=== PATIENT | female | born 1965 | race Caucasian/White ===

== ENCOUNTER 2020-04-20 13:56 | Emergency (ER) | payer BC, SELFPAY ==
--- NOTE | 2020-04-20 15:48 | ED_ITS ---
HPI - General Adult General Chief complaint: General Medical Stated complaint: Chest Wall Pain Time Seen by Provider: 04/20/20 15:38 Source: patient Mode of arrival: ambulatory Limitations: no limitations History of Present Illness HPI narrative: 54-year-old female who reports she has history of hiatal hernia status post mesh as well as tubal ligation and history of hypertension not currently taking any medications presents today with complaint of 1 week of on and off pain on the left-sided chest. She does report she works for [employer] which is somewhat labor-intensive with lot of repetitive movement which makes the pain. she does report there is some nausea after eating which is also been present for the duration of the time. She denies any vomiting or diarrhea. No recent travel or sick contacts. No lower extremity swelling. Does report history of heart disease from father's side otherwise no personal history. Onset (ago): day(s) (5+ days ) Location: chest Radiation: non-radiation Severity: mild and moderate Severity scale (1-10): 3 Quality: aching Pain Consistency: intermittent Relieving factors: immobilization Exacerbating factors: movement Associated symptoms: denies other symptoms Treatments prior to arrival: none Related Data Allergies Allergy/AdvReac Type Severity Reaction Status Date / Time morphine Allergy Difficulty Verified 04/20/20 15:43 Breathing codeine AdvReac Agitated Verified 04/20/20 15:43 Review of Systems Review of Systems: Constitutional: No Weight loss, No Fever, No Chills, No Night Sweats, No Fatigue, No Malaise ENT/Mouth: No Hearing loss, No Ear Pain, No Nasal Congestion, No Sinus Pain, No Hoarseness, No sore throat, No Rhinorrhea, No Swallowing Difficulty Eyes: No Eye Pain, No Swelling, No Redness, No Foreign Body, No Discharge, No Vision Changes Cardiovascular: + Chest Pain, No SOB, No Dyspnea on Exertion, No Orthopnea, No Edema, No Palpitations Respiratory: No Cough, No Sputum, No Wheezing, No Smoke Exposure, No Dyspnea Gastrointestinal: + Nausea, No Vomiting, No Diarrhea, No Constipation, No abdominal Pain, No Hematochezia, No Melena Genitourinary: no irregular bleeding, No Dysuria, No Urinary Frequency, No Hematuria, No Urinary Incontinence, No Urgency, No Flank Pain, No Urinary Flow Changes, No Hesitancy Musculoskeletal: No joint pain, No Myalgias, No Joint Swelling Skin: No Skin Lesions, No rash Neuro: No Weakness, No Numbness, No Paresthesias, No Loss of Consciousness, No Dizziness, No Headache Psych: No Social Issues Heme/Lymph: No Bruising, No Bleeding,No Lymphadenopathy Endocrine: No Polyuria, No Polydipsia, No Temperature Intolerance Yes all other systems are reviewed and are negative [facility]LY [facility] Past Medical History Attestation statement: The following information was validated with the patient. Social History Social History Alcohol intake: never Smoking Status: Never smoker Smoked in Last 30 Days: No Use of substances other than those prescribed or required for medical reasons: No Advance Directives: No Advance Directives Information Provided: No Physical Exam Vital Signs: Vital Signs: Vital Signs Temp Pulse Resp BP Pulse Ox 04/20/20 15:51 98.9 F 71 18 134/77 97 Reviewed Course Course Course Narrative: Exam are consistent with costochondritis atypical for ACS /GB disease. Labs overall stable. D-dimer negative. Abdominal exam benign. Ultrasound negative. No transaminitis. Given IV fluids/Toradol feels much better. Pain is reproducible on exam to the sternal area. Medical Decision Making Differential Diagnosis Differential Diagnosis: Costochondritis, ACS, PE, gastroesophageal reflux disease, GB disease. Lab Data Lab results reviewed: Yes I reviewed the patient's lab results. Result diagrams: 04/20/20 16:11 04/20/20 16:11 Labs: Lab Results 04/20/20 04/20/20 04/20/20 Range/Units 16:11 16:11 16:11 WBC 9.2 (4.8-10.8) X10*3/uL RBC 4.45 (4.20-5.50) X10*6/uL Hgb 12.0 (12.0-16.0) g/dl Hct 37.0 (37-47) % MCV 83.1 (80-98) fL MCH 27.0 (27.0-33.0) pg MCHC 32.4 (31.0-35.0) g/dl RDW 13.0 (11.0-16.0) % Plt Count 285 (160-400) X10*3/uL MPV 10.0 (9.4-12.3) fL Immature Gran % (Auto) 0.2 (0.0-0.4) % Neut % (Auto) 65.4 (45-73) % Lymph % (Auto) 28.3 (20-40) % [place] % (Auto) 4.6 (2-11) % Eos % (Auto) 1.3 (0-4) % Baso % (Auto) 0.2 (0-2) % Lymph # (Auto) 2.6 (1.2-4.9) X10*3/uL [place] # (Auto) 0.4 (0.1-1.2) X10*3/uL Eos # (Auto) 0.1 (0.0-0.4) X10*3/uL Baso # (Auto) 0.0 (0.0-0.2) X10*3/uL Abs Immat Gran (auto) 0.02 (0.00-0.03) X10*3/uL Absolute Neuts (auto) 6.0 (2.0-8.3) X10*3/uL Absolute Nucleated RBC 0.000 (0.0-0.012) X10*3/uL Nucleated RBC % (auto) 0.0 (0.0-0.2) /100WBC PT (10.8-13.0) SEC INR (0.9-1.1) APTT (24.1-38.0) SEC D-Dimer < 200 NG/ML Sodium 139 (135-145) mmol/L Potassium 4.5 (3.3-5.1) mmol/l Chloride 105 (96-108) mmol/L Carbon Dioxide 25 (22-29) mmol/L Anion Gap 14 (12-20) BUN 13 (9-16) mg/dL Creatinine 0.80 (0.5-1.4) mg/dL Estim Creat Clear Calc TNP Estimated GFR > 60 Random Glucose 93 (60-115) mg/dL Calcium 9.2 (8.4-10.2) mg/dL Total Bilirubin 0.4 (0.0-1.0) mg/dL AST 20 (5-31) U/L ALT 16 (0-31) U/L Alkaline Phosphatase 87 (39-117) U/L Troponin I High Sens (<3.5-17.0) ng/L Total Protein 7.2 (6.5-8.0) g/dL Albumin 4.3 (3.5-5.0) g/dL 04/20/20 04/20/20 Range/Units 16:11 16:11 WBC (4.8-10.8) X10*3/uL RBC (4.20-5.50) X10*6/uL Hgb (12.0-16.0) g/dl Hct (37-47) % MCV (80-98) fL MCH (27.0-33.0) pg MCHC (31.0-35.0) g/dl RDW (11.0-16.0) % Plt Count (160-400) X10*3/uL MPV (9.4-12.3) fL Immature Gran % (Auto) (0.0-0.4) % Neut % (Auto) (45-73) % Lymph % (Auto) (20-40) % [place] % (Auto) (2-11) % Eos % (Auto) (0-4) % Baso % (Auto) (0-2) % Lymph # (Auto) (1.2-4.9) X10*3/uL [place] # (Auto) (0.1-1.2) X10*3/uL Eos # (Auto) (0.0-0.4) X10*3/uL Baso # (Auto) (0.0-0.2) X10*3/uL Abs Immat Gran (auto) (0.00-0.03) X10*3/uL Absolute Neuts (auto) (2.0-8.3) X10*3/uL Absolute Nucleated RBC (0.0-0.012) X10*3/uL Nucleated RBC % (auto) (0.0-0.2) /100WBC PT 11.7 (10.8-13.0) SEC INR 1.0 (0.9-1.1) APTT 31.7 (24.1-38.0) SEC D-Dimer NG/ML Sodium (135-145) mmol/L Potassium (3.3-5.1) mmol/l Chloride (96-108) mmol/L Carbon Dioxide (22-29) mmol/L Anion Gap (12-20) BUN (9-16) mg/dL Creatinine (0.5-1.4) mg/dL Estim Creat Clear Calc Estimated GFR Random Glucose (60-115) mg/dL Calcium (8.4-10.2) mg/dL Total Bilirubin (0.0-1.0) mg/dL AST (5-31) U/L ALT (0-31) U/L Alkaline Phosphatase (39-117) U/L Troponin I High Sens < 3.5 (<3.5-17.0) ng/L Total Protein (6.5-8.0) g/dL Albumin (3.5-5.0) g/dL Imaging Data US - abdomen: Radiologist's impression: Sangeeta Alamo I 54 F 1965 [place] [address] Ultrasound Report Signed Patient: Sangeeta Alamo IMR#: [id number] : 1965Acct:[id number] Age/Sex: 54 / FADM Date: 04/20/20 Loc: HO.ED Attending Dr: Ordering Physician: Surendra Corcoran NP Date of Service: 04/20/20 Procedure(s): US abdomen limited Accession Number(s): [id number] cc: Surendra Corcoran BAND INSTRUMENT REPAIRER~ EXAMINATION: US ABDOMEN LIMITED CLINICAL INFORMATION: Abdominal pain. COMPARISON: None TECHNIQUE: Real-time imaging of the right upper quadrant abdominal viscera. FINDINGS: PANCREAS: Normal. LIVER: Normal. The liver is normal in size. The liver contour is normal. Parenchymal echogenicity is normal. No focal hepatic lesion. There is no intrahepatic biliary duct dilatation seen. GALLBLADDER: Normal. The gallbladder is physiologically distended without evidence of stones, sludge, polyps, wall thickening or pericholecystic fluid. COMMON BILE DUCT: Normal in caliber measuring 0.7 cm in diameter. RIGHT KIDNEY: Normal. No hydronephrosis. No renal calculi or focal parenchymal lesions. The kidney measures 9.6 cm in maximum dimension. FREE FLUID: None. US/US abdomen limited IMPRESSION: Unremarkable limited abdomen ultrasound. Dictated By:XIOMY GARCIA MD Signed By:<Electronically signed by XIOMY GARCIA MD in OV>04/20/20 1655 DD/ 1548 TD/TT: Cementer Hand: SONIA Chest x-ray: Radiologist's impression: [id number] [place] [address] XRay Report Signed Patient: Sangeeta Alamo IMR#: [id number] : 1965Acct:[id number] Age/Sex: 54 / FADM Date: 04/20/20 Loc: .ED Attending Dr: Ordering Physician: Surendra Corcoran NP Date of Service: 04/20/20 Procedure(s): XR chest 1V Accession Number(s): [id number] cc: Surendra Corcoran NP~ EXAMINATION: XR CHEST CLINICAL INFORMATION: None provided COMPARISON: None TECHNIQUE: Frontal view of the chest was obtained. FINDINGS: No significant abnormality is noted involving the heart, lungs, mediastinum, bony thorax or soft tissues. XR/XR chest 1V IMPRESSION: Unremarkable examination. Dictated By:NAZARIO DEL VALLE MD Signed By:<Electronically signed by NAZARIO DEL VALLE MD in OV>04/20/20 1624 DD/ 1548 TD/TT: Cementer Hand: SS Scores Additional Scores PERC Score: Score: positive over the age of 50 Comment: heart score negative Discharge Plan Discharge Clinical Impression: Atypical chest pain, Acute costochondritis Patient Disposition: Home, Self-Care Instructions: Chest Pain (ED), Costochondritis (ED) Additional Instructions: supportive bra [id number] naproxen return instructions provided otherwise follow up her primary doctor as instructed Thank you Referrals: Kathryn Staples MD [Primary Care Provider] - 1 week
--- NOTE | 2020-04-20 15:49 | ECG_ITS ---
Test Reason : CHEST WALL PAIN Blood Pressure : / mmHG Vent. Rate : 078 BPM Atrial Rate : 078 BPM P-R Int : 132 ms QRS Dur : 080 ms QT Int : 344 ms P-R-T Axes : 016 011 013 degrees QTc Int : 392 ms Normal sinus rhythm Normal ECG No previous ECGs available Referred By: Surendra Corcoran Electronically Signed By:YOAN JOHNSON MD
[2020-04-20 15:51] VITALS: BP 134/77; PULSE 71; RESP 18; TEMP 37.2; O2SAT 97
[2020-04-20 16:17] LABS: MANUAL DIFF FLAG NO
[2020-04-20 16:18] LABS: Basophils Percent Auto 0.2 % (0-2); Eosinophils Absolute Auto 0.1 X10*3/uL (0.0-0.4); Eosinophils Percent Auto 1.3 % (0-4); Imm Gran Abs Auto 0.02 X10*3/uL (0.00-0.03); Imm Gran Pct Auto 0.2 % (0.0-0.4); Lymphocytes Absolute Auto 2.6 X10*3/uL (1.2-4.9); Lymphocytes Percent Auto 28.3 % (20-40); Mean Corpuscular HGB Conc 32.4 g/dl (31.0-35.0); Mean Corpuscular Volume 83.1 fL (80-98); Monocytes Absolute Auto 0.4 X10*3/uL (0.1-1.2); Monocytes Percent Auto 4.6 % (2-11); Neutrophils Percent Auto 65.4 % (45-73); Platelet Count 285 X10*3/uL (160-400); Red Blood Count 4.45 X10*6/uL (4.20-5.50); White Blood Count 9.2 X10*3/uL (4.8-10.8)
--- NOTE | 2020-04-20 16:20 | PC.NURSE ---
IV started and labs sent.
[2020-04-20] MEDS: 0.9 % Sodium Chloride 500 ML 1000 ML IV (16:24)
[2020-04-20 16:29] LABS: D Dimer < 200 NG/ML
[2020-04-20 16:31] LABS: Prothrombin Time 11.7 SEC (10.8-13.0)
[2020-04-20 16:33] LABS: Partial Thromboplastin Time 31.7 SEC (24.1-38.0)
[2020-04-20 16:47] LABS: Alanine Aminotransferase 16 U/L (0-31); Albumin Level 4.3 g/dL (3.5-5.0); Alkaline Phosphatase 87 U/L (39-117); Anion Gap 14 (12-20); Aspartate Amino Transferase 20 U/L (5-31); Bilirubin Total 0.4 mg/dL (0.0-1.0); Blood Urea Nitrogen 13 mg/dL (9-16); Calcium 9.2 mg/dL (8.4-10.2); Carbon Dioxide 25 mmol/L (22-29); Chloride 105 mmol/L (96-108); Estimated Glomerular Filt Rate > 60; Glucose Random 93 mg/dL (60-115); Potassium 4.5 mmol/l (3.3-5.1); Sodium 139 mmol/L (135-145); Total Protein 7.2 g/dL (6.5-8.0)
[2020-04-20 16:55] LABS: Troponin-I High Sensitivity < 3.5 ng/L (<3.5-17.0)
[2020-04-20 17:46] VITALS: BP 123/72; PULSE 70; RESP 16; TEMP 37.2; O2SAT 99
[2020-04-20 17:47] LABS: Glucose Urine UA NEG (NEG); Leukocyte Esterase Urine NEG (NEG); Nitrite Urine NEG (NEG); PH 6.5 (5.0-8.0); Specific Gravity - Urine 1.025 (1.005-1.025); Urine Blood NEG (NEG); Urine Ketones NEG (NEG); Urine Protein NEG (NEG-TRACE)
[2020-04-20 17:50] LABS: Appearance Urine CLEAR; Color Urine YELLOW
[2020-04-20 17:57] LABS: RBC Urine 0 /HPF (0); Squamous Epithelial Cell Urine 2+ /LPF; WBC Urine 0 /HPF (0-4)
[2020-04-20] MEDS: Ketorolac Tromethamine 30 MG/ML VIAL IVPUSH (18:03)
== END 2020-04-20 18:39 | disposition home or self-care (01) ==
PROVIDERS: Nurse Practitioner Primary Care; Emergency Provider Emergency Medicine; PCP Internal Medicine
DX: R07.89 Other chest pain (principal); M94.0 Chondrocostal junction syndrome [Tietze]
CPT/HCPCS: 36415; 71045; 76705; 80053; 81001; 84484; 85025; 85379; 85610; 85730; 93005; 99283; 99284; J1885

== ENCOUNTER 2020-07-19 06:47 | Outpatient (REF) | payer BC, SELFPAY | END 2020-07-19 06:48 | disposition home or self-care (01) | LOC: HO.LAB 06:47 | PROVIDERS: PCP Internal Medicine; Visit Provider Internal Medicine | DX: Z20.822 Contact with and (suspected) exposure to COVID-19 (principal) | CPT/HCPCS: 36415; C9803; U0003 ==

== ENCOUNTER 2025-05-03 14:52 | Outpatient (AMB) | payer BC, SELFPAY ==
--- NOTE | 2025-05-03 15:14 | A.OFFPC_ITS ---
Vital Signs 05/03/25 15:17 Height 5 ft 0.5 in Weight 179 lb 2 oz BMI 34.4 BP 130/84 Blood Pressure Location Lt brachial Position Sitting Respiration 16 Pulse 74 Pulse Source Pulse Oximeter Temp 97.1 F Temp Source Temporal Artery Scan Pulse Oximetry (%) 97 Oxygen Delivery Method Room Air Intake Visit Reasons: medication follow up Medical Doctor Md/Medical Director Required: No Accompanied by: Self / Same As Patient Allergies morphine Allergy (Verified 05/03/25 15:14) Difficulty Breathing codeine Adverse Reaction (Verified 05/03/25 15:14) Agitated Medication List - Last Reconciled 05/03/25 by Kathryn Staples MD meclizine 25 mg PO TID metformin ER 500 mg PO DAILY omeprazole 40 mg PO BID Tobacco use date assessed: 05/03/25 Dental Screening Dental Screen Date: 05/03/25 Did you have a dental visit in the last 12 months?: No Did you have a dental problem in the last 6 months where you did not have access to dental care?: No Was dental information given to patient?: No HPI HPI Comments History of Present Illness Details The patient is a 59-year-old female [facility] with numerous concerns including GERD, indigestion and nocturnal bowel movements, urinary incontinence, and vertigo. Helicobacter pylori infection: could not do test of cure because of increased pain when she stops PPI Gastroesophageal reflux disease (GERD): Omeprazole is essential to manage symptoms. Discontinuing causes severe heartburn. Urinary incontinence: Frequent urinary leakage on exertion and urgency. Limited benefit from Kegel exercises. Episodes of nocturnal bowel movements: Reports uncontrolled bowel movements at night on some occasions, states symptoms predated metformin. Vertigo: Dizziness exacerbated by certain work activities necessitating physical exertion and changing levels Anemia/vitamin d deficiency: due for repeat labs Bilateral foot pain with calluses: Experiences foot pain after prolonged standing; uses specialty shoe inserts but notes left foot has worsened. Medications: - Omeprazole for GERD, taken twice daily - Metformin taken daily at 2:30 pm to [facility] side effects for prediabetes - Meclizine for vertigo Social History: - Sometimes has to work demanding 11-latisha r shifts, five days a week - Vertigo affects her ability to perform work tasks involving stair climbing - Experiences anxiety regarding work dut ies involving physical exertion Review of Systems - General: Denies changes in menstrual periods -- Cardiovascular: Reports previous ches t pain linked to anxiety during physical exertion, no current episodes - Gastrointestinal: Reports nocturnal gaye wel movements; per hpi - Genitourinary: Reports urinary inconti nence - Musculoskeletal: Reports foot pain and calluses - Neurologic: Reports dizziness with spe cific activities Physical Exam - Respiratory- Lungs clear with no wheez ing - Cardiovascular- Normal heart sounds wi th a soft murmur noted - Gastrointestinal- Abdomen soft, no ten derness, normal bowel sound - Musculoskeletal- Pulses good; callus n oted on the plantar surface of left foot Assessment and Plan 1. Helicobacter pylori infection - GI referral for EGD 2. Gastroesophageal reflux disease (GERD ) - Continue current medication. 3. Urinary incontinence - Urology referral. 4. Episodes of nocturnal bowel movements - GI referral. 5. Vertigo - Address through workplace adjustments when necessary, meclizine prn 6. Anemia/vitamin d deficiency - Monitor with labs. 7. Calluses - Podiatry referral. - get proper inserts Follow up in 3-4 months Discussion Notes I explained the referral process to specialists for ongoing symptoms including GERD, urinary incontinence, nocturnal bowel movements, and foot discomfort. I advised on the importance of addressing work-induced vertigo, discussing safety measures with her employer to prevent exacerbations. I highlighted the significance of monitoring anemia and the need for follow-up laboratory work. Patient Instructions - Continue taking omeprazole as directed . - Follow up with referred specialists. - Work with her employer to address vert igo safety concerns. - Monitor and report any changes in symp toms. - Complete lab tests as discussed. - Maintain proper footwear and see a pod iatrist for foot pain management. [facility] Medical History (Updated 05/03/25 @ 17:38 by Kathryn Staples MD) Callus of foot Urinary incontinence GERD (gastroesophageal reflux disease) Vitamin D deficiency Impaired fasting glucose Iron deficiency anemia Anemia H. pylori infection Surgical History (Updated 05/01/25 @ 17:50 by Henna Vo) History of colonoscopy (~02/11/22) Social History Housing: House Alcohol intake: never Patient Tobacco Use Status: Never used Tobacco e-Cigarette/Vaping Use: Never Used Current occupational status: employed Current occupation: [employer] AUDIT C Alcohol Use Questionnaire (AUDIT-C) 1. How often do you have a drink containing alcohol?: Never 3. How often do you have six or more drinks on one occasion?: Never Total Score: 0 Physical exam (Primary Care) Vital Signs: Last Vital Signs Temp 97.1 F 05/03/25 15:17 Pulse 74 05/03/25 15:17 Resp 16 05/03/25 15:17 BP 130/84 05/03/25 15:17 Pulse Ox 97 05/03/25 15:17 Oxygen Delivery Method Room Air 05/03/25 15:17 BMI result Body Mass Index 34.4 Tobacco/Smoking Status: Tobacco use Status Tobacco use date assessed 05/03/25 05/03/25 15:21 Patient Tobacco Use Status Never used Tobacco 05/03/25 15:21 e-Cigarette/Vaping Use Never Used 05/03/25 15:21 Coding Level of Care Code Est Pt Level 4 (91280) Complex EM visit Add On G2211 Diagnoses H. pylori infection A04.8 Gastroesophageal reflux disease, unspecified whether esophagitis present K21.9 Esophagitis presence: esophagitis presence not specified Urinary incontinence, unspecified type R32 Urinary Incontinence type: unspecified incontinence Impaired fasting glucose R73.01 Callus of foot L84 Iron deficiency anemia, unspecified iron deficiency anemia type D50.9 Iron deficiency anemia type: unspecified iron deficiency Vitamin D deficiency E55.9 Assessment & Plan Assessment & Plan (1) H. pylori infection: Code(s): A04.8 - Other specified bacterial intestinal infections Category: Medical (2) GERD (gastroesophageal reflux disease): Code(s): K21.9 - Gastro-esophageal reflux disease without esophagitis Category: Medical Qualifiers: Esophagitis presence: esophagitis presence not specified Qualified Code(s): K21.9 - Gastro-esophageal reflux disease without esophagitis (3) Urinary incontinence: Code(s): R32 - Unspecified urinary incontinence Category: Medical Qualifiers: Urinary Incontinence type: unspecified incontinence Qualified Code(s): R32 - Unspecified urinary incontinence (4) Impaired fasting glucose: Code(s): R73.01 - Impaired fasting glucose Category: Medical (5) Callus of foot: Code(s): L84 - Corns and callosities Category: Medical (6) Iron deficiency anemia: Code(s): D50.9 - Iron deficiency anemia, unspecified Category: Medical Qualifiers: Iron deficiency anemia type: unspecified iron deficiency Qualified Code(s): D50.9 - Iron deficiency anemia, unspecified (7) Vitamin D deficiency: Code(s): E55.9 - Vitamin D deficiency, unspecified Category: Medical Plan - Continue omeprazole for GERD. - Urology, gynecology and GI referrals. - Address vertigo with workplace solutions. - Anemia labs. - Podiatry evaluation for feet. - obtain [facility] records Orders: Orders Complete Blood Count Auto Diff Today A04.8 - Other specified bacterial intestinal infections, D50.9 - Iron deficiency anemia, unspecified, D64.9 - Anemia, unspecified, E55.9 - Vitamin D deficiency, unspecified, K21.9 - Gastro- esophageal reflux disease without esophagitis, R73.01 - Impaired fasting glucose Comprehensive Met. Panel Today A04.8 - Other specified bacterial intestinal infections, D50.9 - Iron deficiency anemia, unspecified, D64.9 - Anemia, unspecified, E55.9 - Vitamin D deficiency, unspecified, K21.9 - Gastro- esophageal reflux disease without esophagitis, R73.01 - Impaired fasting glucose TSH reflex Free T4 Today A04.8 - Other specified bacterial intestinal infections, D50.9 - Iron deficiency anemia, unspecified, D64.9 - Anemia, unspecified, E55.9 - Vitamin D deficiency, unspecified, K21.9 - Gastro- esophageal reflux disease without esophagitis, R73.01 - Impaired fasting glucose Hemoglobin A1c Today A04.8 - Other specified bacterial intestinal infections, D50.9 - Iron deficiency anemia, unspecified, D64.9 - Anemia, unspecified, E55.9 - Vitamin D deficiency, unspecified, K21.9 - Gastro-esophageal reflux disease without esophagitis, R73.01 - Impaired fasting glucose IRON PROFILE Today A04.8 - Other specified bacterial intestinal infections, D50.9 - Iron deficiency anemia, unspecified, D64.9 - Anemia, unspecified, E55.9 - Vitamin D deficiency, unspecified, K21.9 - Gastro-esophageal reflux disease without esophagitis, R73.01 - Impaired fasting glucose Ferritin Today A04.8 - Other specified bacterial intestinal infections, D50.9 - Iron deficiency anemia, unspecified, D64.9 - Anemia, unspecified, E55.9 - Vit neil D deficiency, unspecified, K21.9 - Gastro-esophageal reflux disease without esophagitis, R73.01 - Impaired fasting glucose Referrals Urology Referral R32 - Unspecified urinary incontinence Gastroenterology Referral A04.8 - Other specified bacterial intestinal infections, K21.9 - Gastro-esophageal reflux disease without esophagitis [employer] Referral [id number] - Encounter for gynecological examination (general) (routine) without abnormal findings Podiatry Referral L84 - Corns and callosities, M79.671 - Pain in right foot, M79.672 - Pain in left foot
[2025-05-03 15:17] VITALS: BP 130/84; PULSE 74; RESP 16; TEMP 36.2; O2SAT 97; BMI 34.4
--- OUTSIDE RECORDS SUMMARY | 2025-05-03 16:16 | XMS_ITS | Encounter Summary ---
Author Organization [facility] Address [address] [place] [address] Care Team Providers Care Drill Sharpener Operator Name Role Phone Kathryn Staples MD Primary Care Provider [phone]- [phone] Encounter Details Date Type Department Care Team (Late st Contact Info) Description 08/30/2023 Scanned Document [address] [id number] Radiology, Scan Social History Tobacco Use Types Packs/Day Years Used Date Smoking Tobacco: Never Assessed Comments Unknown Sex and Gender Information Value Date Recorded Sex Assigned at Female 08/30/2023 8:30 AM EST Legal Sex Female 8:20 AM EST Gender Identity Female 08/30/2023 8:30 AM EST Sexual Orientation Heterosexual (straight) 08/29 8:30 AM EST documented as of this encounter Plan of Treatment Not on file documented as of this encounter Visit Diagnoses Not on filedocumented in this encounter Care Teams Drill Sharpener Operator Relationship Specialty Start Date End Date Kathryn Staples MD [address] [place] [address] PCP - General Internal Medicine 08/30/23 documented as of this encounter
--- OUTSIDE RECORDS SUMMARY | 2025-05-03 16:16 | XMS_ITS | Clinical Summary ---
Author Organization Formerly [facility] Address [address] [place] [address] Care Team Providers Care Toll Ticket Clerk Name Role Phone Kathryn Staples MD Primary Care Provider [phone]- [phone] Social History Tobacco Use Types Packs/Day Years Used Date Smoking Tobacco: Never Assessed Comments Unknown Sex and Gender Information Value Date Recorded Sex Assigned at Female 08/30/2023 8:30 AM EST Legal Sex Female 8:20 AM EST Gender Identity Female 08/30/2023 8:30 AM EST Sexual Orientation Heterosexual (straight) 08/29 8:30 AM EST Plan of Treatment Health Maintenance Due Date Last Done Comments Hepatitis C Virus Screening 1965 HIV Screening 1980 DTaP/Tdap/Td Vaccines (1 - Tdap) 1986 Hepatitis B Vaccines (1 of 3 - 19+ 3-dose series) 05/28 Pap Smear (Ages 21-65) 1988 Colonoscopy 2012 Pneumococcal Vaccines 50+ (1 of 1 - PCV) 2017 Zoster (Shingles) Vaccine (1 of 2) 2017 Influenza Vaccine 01/25/2025 COVID-19 Vaccine ( - season) 2025 Mammogram 08/29/2025 08/30/2023 RSV Vaccine 50 years and old er and Patients (1 - 1-dose 75+ series) 2042 Procedures Procedure Name Priority Date/Time Associated Diagnosis Comments MM MAMMOGRAM SCREENING-BILAT (MOBILE) Routine 08/30/2023 2:31 PM EST Encounter for screening mammogram for breast cancer from Last 3 Months or Most Recently Relevant to Health Maintenance Results * MM Mammogram screening-Bilateral (mobile) (08/30/2023 2:31 PM EST) Anatomical Region Laterality Modality Breast Bilateral Mammography 08/30/2023 2:32 PM EST Impressions 09/14/2023 10:15 AM EDT Heterogeneously dense tissue with diffuse calcifications and multiple small bilateral masses again demonstrated. Recommend bilateral screening breast ultrasound OVERALL ASSESSMENT: BI-RADS 2 - Benign findings RECOMMENDATION: Routine screening mammography recommended in 1 year Recommend bilateral screening breast ultrasound The patient will receive a lay summary of the results of this breast imaging exam. Lay summaries for mammography examinations will also identify the patient's personal breast tissue composition as required by state law. If the patient has a finding requiring further evaluation, our facility will contact the patient to arrange additional imaging. Narrative 09/14/2023 10:15 AM EDT EXAMINATION: MM BILATERAL DIGITAL SCREENING CLINICAL INFORMATION: Screening. COMPARISON: 12/03/21, 11/20/21, 06/05/20 TECHNIQUE: Bilateral full field direct digital mammography was performed in the standard projections. Craniocaudal view of the right breast exaggerated toward the axilla was also performed Computer-aided detection was utilized by the radiologist in the interpretation of this examination. FINDINGS: The breasts are heterogeneously dense which may obscure small masses. (ACR BI-RADS breast composition Category c)*. Right Breast: There are multiple round and oval equal density small masses. There are diffuse round punctate and amorphous calcifications. No new suspicious mass Left Breast: There are multiple equal density small round and oval masses. Diffuse round punctate and amorphous calcifications. No distortion. us Rad-Self Referred MD IMG MAMMOGRAPHY ORDERABLES Final Result from Last 3 Months or Most Recently Relevant to Health Maintenance Insurance OUT [facility] - PPO Care Teams Toll Ticket Clerk Relationship Specialty Start Date End Date Kathryn Staples MD [address] [place] [address] PCP - General Internal Medicine 08/30/23
== END 2025-05-03 16:19 | disposition home or self-care (01) ==
LOC: HO.HMCHD 14:53
PROVIDERS: PCP Internal Medicine; Visit Provider Internal Medicine
DX: A04.8 Other specified bacterial intestinal infections (principal); K21.9 Gastro-esophageal reflux disease without esophagitis; R32 Unspecified urinary incontinence; R73.01 Impaired fasting glucose; L84 Corns and callosities; D50.9 Iron deficiency anemia, unspecified; E55.9 Vitamin D deficiency, unspecified

== ENCOUNTER 2025-05-03 14:52 | Outpatient (REF) | payer BC, SELFPAY ==
[2025-05-03 16:33] LABS: MANUAL DIFF FLAG NO
--- OUTSIDE RECORDS SUMMARY | 2025-05-03 16:52 | XMS_ITS | Clinical Summary ---
Author Organization [facility] ity Address [address] [place] [address] Care Team Providers Care Well Cleaner Name Role Phone Unavailable Primary Care Provider Unavailabl e Social History Tobacco Use Types Packs/Day Years Used Date Smoking Tobacco: Never Assessed Comments Unknown Sex and Gender Information Value Date Recorded Sex Assigned at Not on file Legal Sex Female 2:28 AM EST Gender Identity Not on file Sexual Orientation Not on file Plan of Treatment Health Maintenance Due Date Last Done Comments Breast Cancer Screening 1967 DTaP,Tdap,and Td Vaccines (1 - Tdap) 1986 Hepatitis B Vaccines (1 of 3 - 19+ 3-dose series) 1986 Cervical Cancer Screening: P ap Smear 1988 Pneumococcal Vaccine: 50+ Ye ars (1 of 1 - PCV) 2017 Zoster Vaccines (1 of 2) 2017 Depression Screening 06/27/2024 COVID-19 Vaccine (1 - 2023-2 5 season) 2025 Influenza Vaccine (#1) 2025 RSV Immunization Adult Patie nts (1 - 1-dose 75+ series) 2042 HIB Vaccines Aged Out No longer eligi ble based on patient's age to complete this topic HPV Vaccines Aged Out No longer eligi ble based on patient's age to complete this topic Hepatitis A Vaccines Aged Out No long er eligible based on patient's age to complete this topic IPV Vaccines Aged Out No longer eligi ble based on patient's age to complete this topic MMR Vaccines Aged Out No longer eligi ble based on patient's age to complete this topic Meningococcal ACWY Vaccine Aged Out N o longer eligible based on patient's age to complete this topic Meningococcal B Vaccine Aged Out No l onger eligible based on patient's age to complete this topic RSV Immunization Patients Un trish 20 months Aged Out No longer eligible b ased on patient's age to complete this topic Varicella Vaccines Aged Out No longer eligible based on patient's age to complete this topic
[2025-05-03 17:15] LABS: Hematocrit 39.6 % (37.0-47.0); Hemoglobin 12.8 g/dl (12.0-16.0); Imm Gran Abs Auto 0.03 X10*3/uL (0.00-0.03); Imm Gran Pct Auto 0.3 % (0.0-0.4); Lymphocytes Absolute Auto 2.9 X10*3/uL (1.2-4.9); Mean Corpuscular HGB Conc 32.3 g/dl (31.0-35.0); Mean Corpuscular Hemoglobin 26.4 pg (27.0-33.0); Mean Corpuscular Volume 81.6 fL (80.0-98.0); NRBC Abs Auto 0.000 X10*3/uL (0.0-0.012); NRBC Pct Auto 0.0 /100WBC (0.0-0.2); Platelet Count 342 X10*3/uL (160-400); Red Blood Count 4.85 X10*6/uL (4.20-5.50); White Blood Count 8.6 X10*3/uL (4.8-10.8)
[2025-05-03 17:41] LABS: Alanine Aminotransferase 29 U/L (0-31); Albumin Level 4.8 g/dL (3.5-5.0); Alkaline Phosphatase 86 U/L (39-117); Anion Gap 14 (12-20); Aspartate Amino Transferase 23 U/L (5-31); Blood Urea Nitrogen 11 mg/dL (9-16); Calcium 9.7 mg/dL (8.4-10.2); Carbon Dioxide 27 mmol/L (22-29); Chloride 106 mmol/L (96-108); Estimated Glomerular Filt Rate > 60; Iron 60 mcg/dL (30-160); Percent Iron Saturation 20 % (15-50); Potassium 4.2 mmol/L (3.3-5.1); Sodium 143 mmol/L (135-145); Total Iron Binding Capacity 307 mcg/dL (228-428); Total Protein 7.8 g/dL (6.5-8.0); Unsaturated Iron Binding 247 ug/dL
[2025-05-03 17:56] LABS: Ferritin 49 ng/mL (10-250)
== END 2025-05-03 14:53 | disposition home or self-care (01) ==
LOC: HO.LAB 14:52
PROVIDERS: PCP Internal Medicine; Visit Provider Internal Medicine
DX: A04.8 Other specified bacterial intestinal infections (principal); D64.9 Anemia, unspecified; D50.9 Iron deficiency anemia, unspecified; R73.01 Impaired fasting glucose; E55.9 Vitamin D deficiency, unspecified; K21.9 Gastro-esophageal reflux disease without esophagitis; R32 Unspecified urinary incontinence; L84 Corns and callosities; Z79.84 Long term (current) use of oral hypoglycemic drugs; Z79.899 Other long term (current) drug therapy
CPT/HCPCS: 36415; 80053; 82728; 83036; 83540; 84443; 85025